=== PATIENT | female | born 1965 | race Caucasian/White ===

== ENCOUNTER 2016-04-27 14:28 | Day surgery (SDC) | payer OTHER ==
[~2016-04-27] VITALS: Ht 157.5 cm; Wt 48.5 kg
[~2016-04-27 14:28] MED LIST: ACCOLATE20 MG PO; ALBUTEROL SULF8.5 GM IH; CALAN120 MG PO; CALTRATE PLUS1 EACH PO; EFFEXOR XR150 MG PO; EFFEXOR XR75 MG PO; ELAVIL10 MG PO; EXCEDRIN MIGRA1 EAC3 PO; FIORICET 50-301 EACH PO; FIORICET WI1 CAPSULE PO; FIORICET,ESG1 TABLET PO; GRALISE600 MG PO; IMITREX6 MG/0.5 M SC; LEVOTHYROXINE50 MCG PO; LIORESAL10 MG PO; METRONIDAZOLE500 MG PO; NAMENDA XR21 MG PO; NAMENDA XR28 MG PO; NAMENDA10 MG PO; NEURONTIN300 MG PO; NORTRIPTYLINE H25 MG PO; PERCOCET 5/31 TABLET PO; PERCOCET 7.51 TABLET PO; PREDNISONE50 MG PO; PROMETHAZINE HC25 M1 PO; ROXICODONE5 MG PO; SINEQUAN10 MG PO; SINEQUAN25 MG PO; SYMBICORT60 INHALAT IH; SYNTHROID75 MCG PO; TOPAMAX25 MG PO; VERAPAMIL HCL240 MG PO; ZANAFLEX4 MG PO; ZANTAC300 MG PO; [UNRECOGNIZED DRUG - OTHER] TP
== END 2016-04-27 16:33 | disposition home or self-care (01) ==
LOC: PAIN 14:28 → SDC 15:00 → PAIN 16:33
PROC: 3E0S33Z Introduction of Anti-inflammatory into Epidural Space, Percutaneous Approach (ICD-10-PCS; principal; 2016-04-27)
DX: M47.896 Other spondylosis, lumbar region (principal); M54.5 Low back pain; F41.1 Generalized anxiety disorder; M51.36 Other intervertebral disc degeneration, lumbar region; M79.7 Fibromyalgia; I10 Essential (primary) hypertension; M47.812 Spondylosis without myelopathy or radiculopathy, cervical region; K21.9 Gastro-esophageal reflux disease without esophagitis; M50.90 Cervical disc disorder, unspecified, unspecified cervical region; J45.909 Unspecified asthma, uncomplicated; Z79.51 Long term (current) use of inhaled steroids; E03.9 Hypothyroidism, unspecified
CPT/HCPCS: J1030; J1885; J2250; J3010

== ENCOUNTER 2016-05-25 08:20 | Day surgery (SDC) | payer OTHER ==
[~2016-05-25] VITALS: Ht 157.5 cm; Wt 47.6 kg
[~2016-05-25 08:20] MED LIST changes: +XANAX0.25 MG PO
== END 2016-05-25 09:30 | disposition home or self-care (01) ==
LOC: PAIN 08:20 → SDC 08:45 → PAIN 08:45
DX: M54.12 Radiculopathy, cervical region (principal); M47.892 Other spondylosis, cervical region; M50.20 Other cervical disc displacement, unspecified cervical region; F41.1 Generalized anxiety disorder; I10 Essential (primary) hypertension; E03.9 Hypothyroidism, unspecified; M79.1 Myalgia; K21.9 Gastro-esophageal reflux disease without esophagitis
CPT/HCPCS: J1030; J1885; J2250; J3010

== ENCOUNTER 2016-11-18 12:51 | Day surgery (SDC) | payer OTHER ==
[~2016-11-18] VITALS: Ht 157.5 cm; Wt 53.1 kg
[~2016-11-18 12:51] MED LIST changes: +AMBIEN10 MG PO; +CYMBALTA60 MG PO; -EFFEXOR XR75 MG PO; +PERCOCET 10/1 TABLET PO; -PERCOCET 7.51 TABLET PO
== END 2016-11-18 14:28 | disposition home or self-care (01) ==
LOC: PAIN 12:51 → SDC 15:00 → PAIN 15:00
PROC: BR141ZZ Fluoroscopy of Cervical Facet Joint(s) using Low Osmolar Contrast (ICD-10-PCS; principal; 2016-11-18)
PROC: 3E0T3TZ Introduction of Destructive Agent into Peripheral Nerves and Plexi, Percutaneous Approach (ICD-10-PCS; principal; 2016-11-18)
DX: M47.22 Other spondylosis with radiculopathy, cervical region (principal); M50.10 Cervical disc disorder with radiculopathy, unspecified cervical region; R51 Headache; F41.9 Anxiety disorder, unspecified; J45.909 Unspecified asthma, uncomplicated; I10 Essential (primary) hypertension; K21.9 Gastro-esophageal reflux disease without esophagitis; E03.9 Hypothyroidism, unspecified; M81.0 Age-related osteoporosis without current pathological fracture; Z91.012 Allergy to eggs; Z88.8 Allergy status to other drugs, medicaments and biological substances
CPT/HCPCS: J1030; J1885; J2250; J2405; J3010; S0020

== ENCOUNTER 2017-01-03 12:42 | Day surgery (SDC) | payer OTHER ==
[~2017-01-03] VITALS: Ht 157.5 cm; Wt 53.1 kg
[~2017-01-03 12:42] MED LIST changes: +MULTIPLE VITAM1 EAC4 PO; +OXYCODONE HCL15 MG PO; -PERCOCET 10/1 TABLET PO; +VERAPAMIL HCL120 M1 PO; -VERAPAMIL HCL240 MG PO
== END 2017-01-03 14:20 | disposition home or self-care (01) ==
LOC: PAIN 12:42
DX: M50.123 Cervical disc disorder at C6-C7 level with radiculopathy (principal); M47.22 Other spondylosis with radiculopathy, cervical region; I10 Essential (primary) hypertension; G89.29 Other chronic pain; G43.701 Chronic migraine without aura, not intractable, with status migrainosus; M79.7 Fibromyalgia; M51.36 Other intervertebral disc degeneration, lumbar region; F41.8 Other specified anxiety disorders; M47.816 Spondylosis without myelopathy or radiculopathy, lumbar region; J45.909 Unspecified asthma, uncomplicated; K21.9 Gastro-esophageal reflux disease without esophagitis; E03.9 Hypothyroidism, unspecified; Z88.0 Allergy status to penicillin; Z88.2 Allergy status to sulfonamides
CPT/HCPCS: J1100; J1885; J2250; J3010

== ENCOUNTER 2017-04-07 13:41 | Day surgery (SDC) | payer OTHER ==
[~2017-04-07] VITALS: Ht 157.5 cm; Wt 54.4 kg
[~2017-04-07 13:41] MED LIST changes: +EFFEXOR75 MG PO
== END 2017-04-07 14:50 | disposition home or self-care (01) ==
LOC: PAIN 13:41 → SDC 14:00 → PAIN 14:00
DX: M50.11 Cervical disc disorder with radiculopathy, high cervical region (principal); M79.7 Fibromyalgia; M47.816 Spondylosis without myelopathy or radiculopathy, lumbar region; R51 Headache; I10 Essential (primary) hypertension; E03.9 Hypothyroidism, unspecified; J45.909 Unspecified asthma, uncomplicated; K21.9 Gastro-esophageal reflux disease without esophagitis
CPT/HCPCS: J1030; J1885; J2250; J3010; S0020